=== PATIENT | female | born 1985 | race Caucasian/White ===

== ENCOUNTER 2018-09-30 09:31 | Emergency (ER) | payer SELFPAY ==
--- NOTE | 2018-09-30 09:39 | EDM.PDOC ---
ED HPI GENERAL MEDICAL PROBLEM - General Chief Complaint: Allergic Reaction Stated Complaint: RASH Time Seen by Provider: 09/30/18 09:35 - History of Present Illness INITIAL COMMENTS - FREE TEXT/NARRATIVE: HISTORY AND PHYSICAL: History of present illness: Patient is a 32-year-old white female presents with a concern of rash to her hands bilaterally who subsequently had a syncopal episode while out in triage. She denies chest pain shortness of breath denies drug or alcohol abuse denies chest pain palpitations she is currently on her menses Review of systems: As per history of present illness and below otherwise all systems reviewed and negative. Past medical history: As per history of present illness and as reviewed below otherwise noncontributory. Surgical history: As per history of present illness and as reviewed below otherwise noncontributory. Social history: No reported history of drug or alcohol abuse. Family history: As per history of present illness and as reviewed below otherwise noncontributory. Physical exam: HEENT: Atraumatic, normocephalic, pupils reactive, negative for conjunctival pallor or scleral icterus, mucous membranes moist, throat clear, neck supple, nontender, trachea midline. Lungs: Clear to auscultation, breath sounds equal bilaterally, chest nontender. Heart: S1S2, regular, negative for clicks, rubs, or JVD. Abdomen: Soft, nondistended, nontender. Negative for masses or hepatosplenomegaly. Negative for costovertebral tenderness. Pelvis: Stable nontender. Genitourinary: Deferred. Rectal: Deferred. Extremities: Atraumatic, negative for cords or calf pain. Neurovascular unremarkable. Neuro: Awake, alert, oriented. Cranial nerves II through XII unremarkable. Cerebellum unremarkable. Motor and sensory unremarkable throughout. Exam nonfocal. Diagnostics: CBC CMP troponin PT/INR chest x-ray EKG UA hCG UDS Therapeutics: Saline 1 L bolus Impression: #1 rash #2 syncope Definitive disposition and diagnosis as appropriate pending reevaluation and review of above. - Related Data Allergies Allergy/AdvReac Type Severity Reaction Status Date / Time No Known Allergies Allergy Verified 09/30/18 09:49 Home Meds: Home Meds . [No Known Home Meds] 11/12/13 [History] Past Medical History - Past Health History Medical/Surgical History: Denies Medical/Surgical History ED ROS ALLERGIC REACTION - Review of Systems Review Of Systems: ROS reveals no pertinent complaints other than HPI. ED EXAM GENERAL NO PERIP PULSE - Physical Exam Exam: See Below (See dictation) Course - Vital Signs Text/Narrative:: I discussed with patient diagnostics and also discussed admission for observation patient declines feels much improved and requests discharge home patient understands risk-benefit will follow-up as needed as discussed Last Recorded V/S: Last Vital Signs Temp 35.9 C 09/30/18 09:46 Pulse 72 09/30/18 09:46 Resp 18 09/30/18 09:46 BP 98/55 L 09/30/18 09:46 Pulse Ox 98 09/30/18 09:46 - Orders/Labs/Meds Orders: Active Orders 24 hr Category Date Time Status Cardiac Monitoring [RC] . DIRECTED Care 09/30/18 09:44 Active EKG Documentation Completion [RC] STAT Care 09/30/18 09:44 Active DRUG SCREEN, URINE [URCHEM] Stat Lab 09/30/18 09:44 Ordered HCG QUALITATIVE,URINE [URCHEM] Urgent Lab 09/30/18 09:44 Ordered UA RFX GONZALO AND CULT IF INDIC [URIN] Stat Lab 09/30/18 09:46 Ordered Labs: Laboratory Tests 09/30/18 09/30/18 Range/Units 09:40 09:40 WBC 7.18 (4.0-11.0) K/uL RBC 5.32 (4.30-5.90) M/uL Hgb 16.2 H (12.0-16.0) g/dL Hct 45.8 (36.0-46.0) % MCV 86.1 (80.0-98.0) fL MCH 30.5 (27.0-32.0) pg MCHC 35.4 (31.0-37.0) g/dL RDW Std Deviation 40.6 (28.0-62.0) fl RDW Coeff of Natalie 13 (11.0-15.0) % Plt Count 231 (150-400) K/uL MPV 9.40 (7.40-12.00) fL Neut % (Auto) 45.7 L (48.0-80.0) % Lymph % (Auto) 42.2 H (16.0-40.0) % Prairie % (Auto) 10.3 (0.0-15.0) % Eos % (Auto) 1.4 (0.0-7.0) % Baso % (Auto) 0.4 (0.0-1.5) % Neut # (Auto) 3.3 (1.4-5.7) K/uL Lymph # (Auto) 3.0 H (0.6-2.4) K/uL Prairie # (Auto) 0.7 (0.0-0.8) K/uL Eos # (Auto) 0.1 (0.0-0.7) K/uL Baso # (Auto) 0.0 (0.0-0.1) K/uL Nucleated RBC % 0.0 /100WBC Nucleated RBCs # 0 K/uL Sodium 140 (136-145) mmol/L Potassium 4.0 (3.5-5.1) mmol/L Chloride 105 (98-107) mmol/L Carbon Dioxide 22.9 (21.0-32.0) mmol/L BUN 7 (7.0-18.0) mg/dL Creatinine 1.0 (0.6-1.0) mg/dL Est Cr Clr Drug Dosing 58.55 mL/min Estimated GFR (MDRD) > 60.0 ml/min Glucose 123 H (74-106) mg/dL Calcium 8.7 (8.5-10.1) mg/dL Total Bilirubin 0.3 (0.2-1.0) mg/dL AST 22 (15-37) IU/L ALT 30 (14-63) IU/L Alkaline Phosphatase 57 (46-116) U/L Troponin I < 0.050 (0.000-0.056) ng/mL Total Protein 7.5 (6.4-8.2) g/dL Albumin 3.2 L (3.4-5.0) g/dL Globulin 4.3 H (2.6-4.0) g/dL Albumin/Globulin Ratio 0.7 L (0.9-1.6) Meds: Medications Discontinued Medications Generic Name Dose Route Start Last Admin Trade Name Freq PRN Reason Stop Dose Admin Sodium Chloride 1,000 mls @ 999 mls/hr 09/30/18 09:45 09/30/18 10:32 Normal Saline IV 09/30/18 10:45 999 mls/hr .Bolus ONE Administration Departure - Departure Time of Disposition: 11:15 Disposition: Home, Self-Care 01 Condition: Good Clinical Impression: Dehydration, Vasovagal episode, Viral syndrome, Rash - Discharge Information Additional Instructions: The following information is given to patients seen in the emergency department who are being discharged to home. This information is to outline your options for follow-up care. We provide all patients seen in our emergency department with a follow-up referral. The need for follow-up, as well as the timing and circumstances, are variable depending upon the specifics of your emergency department visit. If you don't have a primary care physician on staff, we will provide you with a referral. We always advise you to contact your personal physician following an emergency department visit to inform them of the circumstance of the visit and for follow-up with them and/or the need for any referrals to a consulting specialist. The emergency department will also refer you to a specialist when appropriate. This referral assures that you have the opportunity for followup care with a specialist. All of these measure are taken in an effort to provide you with optimal care, which includes your followup. Under all circumstances we always encourage you to contact your private physician who remains a resource for coordinating your care. When calling for followup care, please make the office aware that this follow-up is from your recent emergency room visit. If for any reason you are refused follow-up, please contact the [facility] emergency department at and asked to speak to the emergency department charge nurse. Push fluids Motrin/Tylenol as directed Benadryl as directed follow-up primary care as needed as discussed and return as needed as discussed - My Orders Last 24 Hours: My Active Orders 09/30/18 09:44 Cardiac Monitoring [RC] . DIRECTED EKG Documentation Completion [RC] STAT DRUG SCREEN, URINE [URCHEM] Stat HCG QUALITATIVE,URINE [URCHEM] Urgent 09/30/18 09:46 UA RFX GONZALO AND CULT IF INDIC [URIN] Stat - Assessment/Plan Last 24 Hours: My Active Orders 09/30/18 09:44 Cardiac Monitoring [RC] . DIRECTED EKG Documentation Completion [RC] STAT DRUG SCREEN, URINE [URCHEM] Stat HCG QUALITATIVE,URINE [URCHEM] Urgent 09/30/18 09:46 UA RFX GONZALO AND CULT IF INDIC [URIN] Stat
[2018-09-30] MEDS ORDERED: Sodium Chloride 0.9% 1,000 ML IV ONE ×2 (09:45→13:10)
[2018-09-30 10:25] LABS: CHLORIDE,CL 105 mmol/L (98-107); SODIUM,NA 140 mmol/L (136-145)
--- NOTE | 2018-09-30 10:57 | CR ---
EXAMINATION: Portable chest radiograph. HISTORY: Chest pain. FINDINGS: The trachea is midline. The cardiomediastinal silhouette is within normal limits. No pulmonary infiltrates, effusions or pneumothorax. Osseous structures appear unremarkable. IMPRESSION: No acute cardiopulmonary process.
== END 2018-09-30 14:13 | disposition home or self-care (01) ==
LOC: MW.ED 09:31
DX: E86.0 Dehydration (principal); R21 Rash and other nonspecific skin eruption; B34.9 Viral infection, unspecified
CPT/HCPCS: 36415; 71045; 80053; 84484; 84703; 85025; 87804; 93005; 96360; 96361; 99284; J7040

== ENCOUNTER 2019-09-07 17:47 | Emergency (ER) | payer SELFPAY ==
--- NOTE | 2019-09-07 18:47 | EDM.PDOC ---
ED [facility] GENERAL MEDICAL PROBLEM - General Chief Complaint: Syncope Stated Complaint: PASS OUT 2 TIMES TODAY Time Seen by Provider: 09/07/19 18:01 - History of Present Illness INITIAL COMMENTS - FREE TEXT/NARRATIVE: HPI 33-year-old obese female with history of vasovagal syncope reports that she felt like she was going to pass out several times today, this was a company by lightheadedness that resolved one sitting. Patient reports that she has had decreased PO intake over last several days due to viral upper respiratory tract infection symptoms. Patient reports that she is previously passed out when dehydrated. * Denies chest pain, shortness of breath, double vision, neck pain, vertigo, headache, arm pain, arm paresthesias, arm numbness, or focal weakness or sensory at change now or the time of their event. * Denies recent chiropractic manipulation of their neck, neck trauma or strains. * Denies a history of seizures. No incontinence today, denies post-syncope confusion. M/S/F/SocHx notable for: please see HPI; remainder reviewed with patient and in chart. ROS: Negative constitutional, eye, cardiovascular, pulmonary, GI, , MSK, skin , neurologic, psychiatric, endocrine unless noted in the HPI. Exam HR 85, BP 141/96, RR 19, T 36.9 F, SaO2 99 % on room air; at 5:55 PM. Gen: Pleasant, non-toxic appearing, resting comfortably. HEENT: NC, AT, PEERL, EOMI. Resp: Clear to auscultation bilaterally with a normal work of breathing and no accessory muscle usage. Card: Regular rate and rhythm with no murmurs rubs or gallops, extremities are warm and well perfused, no JVD. GI: Nontender to palpation throughout all quadrants, nondistended : Deferred MSK: No visible deformities, strength and tone WNL. Skin: Normal color with no visible lesions. Neuro: alert and oriented 3, no facial asymmetry, no gaze preference, no slurring of speech. Pupils equal and reactive, EOMI, no facial asymmetry, no nystagmus, phonation intact, SCM 5/5 bilaterally. Cerebellar: bilateral upper extremities without dysmetria. Psych: unusual mood and affect. Labs / Imaging (pertinent): Accu-Chek 126. CBC, BMP, hCG, EtOH pending. EKG: SR at [address]-segment elevations or depressions, T-wave inversions or new LBBB. CA interval 139 msec, QTc 410 msec, no delta waves, epsilon waves, coved or saddle ST-segment changes in leads V1-3, preseptal or inferior lead Q-waves, biphasic P-waves, or T-wave inversions; no LVH. MDM Previous chart, nursing note, and vitals reviewed. A: 33-year-old obese female with history of vasovagal syncope reports that she felt like she was going to pass out several times today, this was a company by lightheadedness that resolved one sitting. DDx and evaluation: * Anemia - doubt based upon history and exam, however Hb pending. * Cardiac - EKG labs and history without evidence of ACS, AV-block, WPW syndrome, Brugada syndrome, HCM, Long or Short QT-syndrome, or arrhythmogenic RV dysplasia. Heart sounds WNL on exam, no evidence of valvular abnormalities by history or auscultation. * Obstructive - Doubt PE, tamponade, or pulmonary hypertension based upon lack of shortness of breath, chest pain, or historical risk factors on history and the absence of hypoxemia, tachycardia, hypotension, or JVD on exam. PERC negative (age >= 50 - N, HR >= 100 - N, SaO2 < 95 - N, prior DVT - N, trauma or surgery in last 4 weeks - N, hemoptysis - N, exogenous estrogen - N, unilateral leg swelling - N). * Vascular - As there are no identifiable risk factors on history (injury risk factors, vertiginous symptoms, diplopia, vision changes, TIA risk factors or prior similar events) further evaluation of a possible vertebrobasilar insufficiency. Furthermore, as the patient denies neck pain, recent neck trauma , and there is no evidence of a partial Terry's syndrome, a carotid or vertebral dissection is felt to be unlikely and imaging is not indicated. Similarly, the absence of focal arm symptoms and symmetric perfusion of the upper extremities effectively excludes emergent evaluation of any possible subclavian steal syndrome. Lastly, given the absence of chest pain aortic dissection further evaluation of any possible dissection is not warranted. * Electrolyte low(er) risk based upon history and exam, BMP pending. * Hypotension (hypovolemia vs vasovagal vs autonomic instability) - SBP clinically within normal limits, no symptomatic changes with orthostatic maneuvers. * VP D[employer]ITAL MARKETING (CVA/TIA/Mass) - given the absence of headache, absence of reported transient symptoms c/w a TIA and the absence of a focal neurological deficit, further evaluation, including imaging is not currently warranted. * Seizure - given the absence of reported seizure history and a presentation today atypical for a seizure strongly doubt that this was the cause of the patient's event. * AAA - patient without any abdominal, groin, back or flank pain on history or exam, as such no further evaluation of this possible etiology is currently indicated. ED Course: 1 L NS ordered. Disposition: patient care transfer to the overnight provider pending laboratory studies, IV fluids, and repeat evaluation. Impression: presyncope. - Related Data Allergies Allergy/AdvReac Type Severity Reaction Status Date / Time No Known Allergies Allergy Verified 09/07/19 18:04 Home Meds: Home Meds . [No Known Home Meds] 11/12/13 [History] Past Medical History - Past Health History Medical/Surgical History: Denies Medical/Surgical History Neurological History: Reports: Other (See Below) Other Neuro History: syncopal episodes - Infectious Disease History Infectious Disease History: Reports: Chicken Pox Social & Family History - Family History Family Medical History: Noncontributory - Tobacco Use Smoking Status *Q: Never Smoker Second Hand Smoke Exposure: No - Caffeine Use Caffeine Use: Reports: Coffee - Recreational Drug Use Recreational Drug Use: No ED ROS GENERAL - Review of Systems Review Of Systems: See Below ED EXAM, GENERAL - Physical Exam Exam: See Below Course - Vital Signs Last Recorded V/S: Last Vital Signs Temp 36.9 C 09/07/19 17:55 Pulse 80 09/07/19 18:26 Resp 16 09/07/19 18:26 BP 139/87 09/07/19 18:26 Pulse Ox 97 09/07/19 18:26 - Orders/Labs/Meds Orders: Active Orders 24 hr Category Date Time Status BMP [BASIC METABOLIC PANEL,BMP] [CHEM] Stat Lab 09/07/19 18:35 Received CBC WITH AUTO DIFF [HEME] Stat Lab 09/07/19 18:35 Received ETOH [ETHANOL BLOOD MEDICAL] [CHEM] Stat Lab 09/07/19 18:35 Received HCG QUALITATIVE,SERUM [CHEM] Stat Lab 09/07/19 18:35 Received Labs: Laboratory Tests 09/07/19 Range/Units 18:00 POC Glucose 126 H (60-110) mg/dL Departure - Departure Time of Disposition: 18:47 Disposition: Still A Patient 30 Clinical Impression: Pre-syncope - Discharge Information Referrals: PCP,None [Primary Care Provider] - Additional Instructions: You were in seen in the [facility] Emergency Department for evaluation of feeling like you are going to pass out or presyncope. Please read and follow all of the instructions below. Please follow up with your primary care physician in 24-48 hours for repeat evaluation and further care. When calling for follow-up care, please make the office aware that this follow-up is from your recent emergency room visit. If for any reason you are refused follow-up, please contact the [facility] Emergency Department at and asked to speak to the emergency department charge nurse. Your care today was limited to identifying and treating emergent medical problems only. Many people have subtle differences in their test results that require follow up with their outpatient physician(s) to correctly determine if this represents a normal variation or concerning abnormality with respect to your specific health. The care given to you today was limited to identifying and treating emergent medical problems - you need to request a copy of all of your medical records from today's visit and follow up with your outpatient physician(s) to review both today's visit and your overall health. If you have any new symptoms or if you are at all concerned about your health please return immediately to the emergency department. Prescriptions: If you are uninsured or have financial difficulties with filling your prescription(s), you may consider using a free pharmacy discount service such as [employer] ([employer]) or [employer] ([employer]). These services allow you to search for a medication on your phone (or computer) and obtain a coupon that usually has a significant discount from the list frias at a pharmacy. Your physician as well as [facility] does not have a financial relationship with either of these services. You may also wish to speak with your physician to determine if lower cost prescriptions are possible. Obtaining primary care: 1. [facility] provides pediatrics (children), family medicine (children, adults, and some obstetrical care), and internal medicine (adults). Further specialty care is also available. Same day appointments are available. They may be contacted at [phone] and are open Sergey through Wednesday 8 AM to 5 PM. The [facility] clinics are located at [facility], [address] [place], [place] [address]. 2. [facility] offers family medicine, internal medicine, womens health, and further specialty care. [facility] may be contacted at [phone]. [facility] is located at [address] [place], [address]. 3. If you have health insurance, please also contact your insurer for a list of accepting providers under your policy, you may contact these providers for further health care. Occupational health: Work related injuries may consider following up with [facility], . Occupational health services are located at [address] [address] and are open Wednesday through Wednesday from 7: 30 am to 5:00 pm. Obstetrical and Gynecological Care: [facility], , Wednesday through Wednesday 8 AM to [address] [place] [address]. Eyecare: If you have an eye injury you should follow up with your decorative engraver or with [facility], at [phone] or [phone] , they are located at [address] [place] [address]. Dental Care Jaleel Hernandez DDS. [address] [facility] [place], [place]. Ph. [phone] Gurmeet Hernandez DDS MS. [address] [facility] [address], [place], [place]. Ph. Anoop Anton DDS. 10 07/06 [facility] [place]. Ph. [phone] Ted Shafer DDS. [address] [facility] [address] [place], [place]. Ph. [phone] Blaise Betancourt DDS PC. [address] [place] [address] [address] [place], [place]. Ph. [phone] Christiano Melendez DDS. [address] [facility]. Ph. [phone] [facility]. [address] [place], [place]. Ph. [phone] [facility]. [address], [place], [place]. Ph. [phone] [facility] [address] [place] [address]. Ph. [phone] [facility]. [address] [place] [address] [address] [place], [place]. Ph. [phone] [facility]. [address], [place], [place]. Ph. [phone] Syncope You have had a fainting (syncopal) spell. A fainting episode is a sudden and brief loss of consciousness. We do not believe your syncopal episode today was caused by a serious problem. You should . Please followup with your primary care physician within 1-2 days for reevaluation, review of your current medications, and further workup or treatment if necessary. There are many causes for syncope and it can be difficult to fully diagnose each cause of syncope in the emergency department. Some of the most common causes of syncope are: Blood pressure pills and other medications that may lower blood pressure below normal. Sudden changes in posture (sudden standing). Standing too long. This can cause blood to pool in the legs. Seizure disorders. Low blood sugar (hypoglycemia) of diabetes. Bearing down to go to the bathroom. This can cause your blood pressure to rise suddenly. Your body compensates by making the blood pressure too low when you stop bearing down. Hardening of the arteries where the brain temporarily does not receive enough blood. Irregular heart beat and circulatory problems. Fear, emotional distress, injury, sight of blood, or illness. Seek immediate medical care if: You have another fainting episode or faint while lying or sitting down. DO NOT DRIVE YOURSELF. Call 911 if no other help is available. You have chest pain, are feeling sick to your stomach (nausea), vomiting or abdominal pain. You have an irregular heartbeat or one that is very fast (pulse over 120 beats per minute). You have a loss of feeling in some part of your body or lose movement in your arms or legs. You have difficulty with speech, confusion, severe weakness, or visual problems. You become sweaty and/or feel light headed. Sepsis Event Note - Evaluation Sepsis Screening Result: No Definite Risk - Focused Exam Vital Signs: Vital Signs Temp Pulse Resp BP Pulse Ox 09/07/19 18:26 80 16 139/87 97 09/07/19 17:55 36.9 C 85 19 141/96 H 99 Date Exam was Performed: 09/07/19 Time Exam was Performed: 18:46 - My Orders Last 24 Hours: My Active Orders 09/07/19 18:35 BMP [BASIC METABOLIC PANEL,BMP] [CHEM] Stat CBC WITH AUTO DIFF [HEME] Stat ETOH [ETHANOL BLOOD MEDICAL] [CHEM] Stat HCG QUALITATIVE,SERUM [CHEM] Stat - Assessment/Plan Last 24 Hours: My Active Orders 09/07/19 18:35 BMP [BASIC METABOLIC PANEL,BMP] [CHEM] Stat CBC WITH AUTO DIFF [HEME] Stat ETOH [ETHANOL BLOOD MEDICAL] [CHEM] Stat HCG QUALITATIVE,SERUM [CHEM] Stat
[2019-09-07 19:07] LABS: BLOOD UREA NITROGEN,BUN 12 mg/dL (7.0-18.0); CARBON DIOXIDE,CO2 28.3 mmol/L (21.0-32.0); CHLORIDE,CL 105 mmol/L (98-107); GLUCOSE RANDOM 94 mg/dL (74-106); SODIUM,NA 143 mmol/L (136-145)
--- NOTE | 2019-09-07 19:31 | EDM.PDOC ---
ED [facility] GENERAL MEDICAL PROBLEM - General Chief Complaint: Syncope Stated Complaint: PASS OUT 2 TIMES TODAY Time Seen by Provider: 09/07/19 18:01 - History of Present Illness INITIAL COMMENTS - FREE TEXT/NARRATIVE: HPI 33-year-old obese female with history of vasovagal syncope reports that she felt like she was going to pass out several times today, this was a company by lightheadedness that resolved one sitting. Patient reports that she has had decreased PO intake over last several days due to viral upper respiratory tract infection symptoms. Patient reports that she is previously passed out when dehydrated. * Denies chest pain, shortness of breath, double vision, neck pain, vertigo, headache, arm pain, arm paresthesias, arm numbness, or focal weakness or sensory at change now or the time of their event. * Denies recent chiropractic manipulation of their neck, neck trauma or strains. * Denies a history of seizures. No incontinence today, denies post-syncope confusion. M/S/F/SocHx notable for: please see HPI; remainder reviewed with patient and in chart. ROS: Negative constitutional, eye, cardiovascular, pulmonary, GI, , MSK, skin , neurologic, psychiatric, endocrine unless noted in the HPI. Exam HR 85, BP 141/96, RR 19, T 36.9 F, SaO2 99 % on room air; at 5:55 PM. Gen: Pleasant, non-toxic appearing, resting comfortably. HEENT: NC, AT, PEERL, EOMI. Resp: Clear to auscultation bilaterally with a normal work of breathing and no accessory muscle usage. Card: Regular rate and rhythm with no murmurs rubs or gallops, extremities are warm and well perfused, no JVD. GI: Nontender to palpation throughout all quadrants, nondistended : Deferred MSK: No visible deformities, strength and tone WNL. Skin: Normal color with no visible lesions. Neuro: alert and oriented 3, no facial asymmetry, no gaze preference, no slurring of speech. Pupils equal and reactive, EOMI, no facial asymmetry, no nystagmus, phonation intact, SCM 5/5 bilaterally. Cerebellar: bilateral upper extremities without dysmetria. Psych: unusual mood and affect. Labs / Imaging (pertinent): Accu-Chek 126. CBC, BMP, hCG, EtOH pending. EKG: SR at [address]-segment elevations or depressions, T-wave inversions or new LBBB. NE interval 139 msec, QTc 410 msec, no delta waves, epsilon waves, coved or saddle ST-segment changes in leads V1-3, preseptal or inferior lead Q-waves, biphasic P-waves, or T-wave inversions; no LVH. MDM Previous chart, nursing note, and vitals reviewed. A: 33-year-old obese female with history of vasovagal syncope reports that she felt like she was going to pass out several times today, this was a company by lightheadedness that resolved one sitting. DDx and evaluation: * Anemia - doubt based upon history and exam, however Hb pending. * Cardiac - EKG labs and history without evidence of ACS, AV-block, WPW syndrome, Brugada syndrome, HCM, Long or Short QT-syndrome, or arrhythmogenic RV dysplasia. Heart sounds WNL on exam, no evidence of valvular abnormalities by history or auscultation. * Obstructive - Doubt PE, tamponade, or pulmonary hypertension based upon lack of shortness of breath, chest pain, or historical risk factors on history and the absence of hypoxemia, tachycardia, hypotension, or JVD on exam. PERC negative (age >= 50 - N, HR >= 100 - N, SaO2 < 95 - N, prior DVT - N, trauma or surgery in last 4 weeks - N, hemoptysis - N, exogenous estrogen - N, unilateral leg swelling - N). * Vascular - As there are no identifiable risk factors on history (injury risk factors, vertiginous symptoms, diplopia, vision changes, TIA risk factors or prior similar events) further evaluation of a possible vertebrobasilar insufficiency. Furthermore, as the patient denies neck pain, recent neck trauma , and there is no evidence of a partial Terry's syndrome, a carotid or vertebral dissection is felt to be unlikely and imaging is not indicated. Similarly, the absence of focal arm symptoms and symmetric perfusion of the upper extremities effectively excludes emergent evaluation of any possible subclavian steal syndrome. Lastly, given the absence of chest pain aortic dissection further evaluation of any possible dissection is not warranted. * Electrolyte low(er) risk based upon history and exam, BMP pending. * Hypotension (hypovolemia vs vasovagal vs autonomic instability) - SBP clinically within normal limits, no symptomatic changes with orthostatic maneuvers. * ESTIMATION MANAGER (CVA/TIA/Mass) - given the absence of headache, absence of reported transient symptoms c/w a TIA and the absence of a focal neurological deficit, further evaluation, including imaging is not currently warranted. * Seizure - given the absence of reported seizure history and a presentation today atypical for a seizure strongly doubt that this was the cause of the patient's event. * AAA - patient without any abdominal, groin, back or flank pain on history or exam, as such no further evaluation of this possible etiology is currently indicated. ED Course: 1 L NS ordered. Disposition: patient care transfer to the overnight provider pending laboratory studies, IV fluids, and repeat evaluation. Impression: presyncope. - Related Data Allergies Allergy/AdvReac Type Severity Reaction Status Date / Time No Known Allergies Allergy Verified 09/07/19 18:04 Home Meds: Home Meds . [No Known Home Meds] 11/12/13 [History] Past Medical History - Past Health History Medical/Surgical History: Denies Medical/Surgical History Neurological History: Reports: Other (See Below) Other Neuro History: syncopal episodes - Infectious Disease History Infectious Disease History: Reports: Chicken Pox Social & Family History - Family History Family Medical History: Noncontributory - Tobacco Use Smoking Status *Q: Never Smoker Second Hand Smoke Exposure: No - Caffeine Use Caffeine Use: Reports: Coffee - Recreational Drug Use Recreational Drug Use: No ED ROS GENERAL - Review of Systems Review Of Systems: See Below - Physical Exam Exam: See Below Course - Vital Signs Text/Narrative:: Please see the original H&P as the patient's care has been handed off to me. ECG The ECG was read and interpreted by me. There are p waves before every QRS with a ventricular rate of 82. The NE, QRS, and QT intervals are all normal. [place] is normal. ST segments are baseline and the T wave morphology is normal. Final interpretation is a normal Sinus rhythm and a normal ECG. Labs are unremarkable, the patient is not orthostatic, she is awake alert and oriented x3, etc. Listening to the patient's story, she has multiple episodes of vasovagal syncope in the past, and most of them are associated with her either being sick, or episodes such as giving plasma, having her finger stapled , etc. Tonight near syncopal episode is no different and I agree with the morning physician's initial clinical suspicion that todays near syncopal episode is not due to any malignant cause and she is stable for discharge. Last Recorded V/S: Last Vital Signs Temp 36.9 C 09/07/19 17:55 Pulse 80 09/07/19 18:26 Resp 16 09/07/19 18:26 BP 139/87 09/07/19 18:26 Pulse Ox 97 09/07/19 18:26 - Orders/Labs/Meds Orders: Active Orders 24 hr Category Date Time Status EKG Documentation Completion [RC] STAT Care 09/07/19 19:33 Active Labs: Laboratory Tests 09/07/19 09/07/19 09/07/19 Range/Units 18:00 18:35 18:35 WBC 5.40 (4.0-11.0) K/uL RBC 4.90 (4.30-5.90) M/uL Hgb 14.8 (12.0-16.0) g/dL Hct 42.3 (36.0-46.0) % MCV 86.3 (80.0-98.0) fL MCH 30.2 (27.0-32.0) pg MCHC 35.0 (31.0-37.0) g/dL RDW Std Deviation 38.8 (28.0-62.0) fl RDW Coeff of Natalie 13 (11.0-15.0) % Plt Count 239 (150-400) K/uL MPV 9.20 (7.40-12.00) fL Neut % (Auto) 49.3 (48.0-80.0) % Lymph % (Auto) 32.8 (16.0-40.0) % Smith % (Auto) 12.0 (0.0-15.0) % Eos % (Auto) 5.7 (0.0-7.0) % Baso % (Auto) 0.2 (0.0-1.5) % Neut # (Auto) 2.7 (1.4-5.7) K/uL Lymph # (Auto) 1.8 (0.6-2.4) K/uL Smith # (Auto) 0.7 (0.0-0.8) K/uL Eos # (Auto) 0.3 (0.0-0.7) K/uL Baso # (Auto) 0.0 (0.0-0.1) K/uL Sodium 143 (136-145) mmol/L Potassium 4.0 (3.5-5.1) mmol/L Chloride 105 (98-107) mmol/L Carbon Dioxide 28.3 (21.0-32.0) mmol/L BUN 12 (7.0-18.0) mg/dL Creatinine 0.9 (0.6-1.0) mg/dL Est Cr Clr Drug Dosing 64.46 mL/min Estimated GFR (MDRD) > 60.0 ml/min Glucose 94 (74-106) mg/dL POC Glucose 126 H (60-110) mg/dL Calcium 9.3 (8.5-10.1) mg/dL HCG, Qual (NEG) Ethyl Alcohol mg/dL 09/07/19 09/07/19 Range/Units 18:35 18:35 WBC (4.0-11.0) K/uL RBC (4.30-5.90) M/uL Hgb (12.0-16.0) g/dL Hct (36.0-46.0) % MCV (80.0-98.0) fL MCH (27.0-32.0) pg MCHC (31.0-37.0) g/dL RDW Std Deviation (28.0-62.0) fl RDW Coeff of Natalie (11.0-15.0) % Plt Count (150-400) K/uL MPV (7.40-12.00) fL Neut % (Auto) (48.0-80.0) % Lymph % (Auto) (16.0-40.0) % Smith % (Auto) (0.0-15.0) % Eos % (Auto) (0.0-7.0) % Baso % (Auto) (0.0-1.5) % Neut # (Auto) (1.4-5.7) K/uL Lymph # (Auto) (0.6-2.4) K/uL Smith # (Auto) (0.0-0.8) K/uL Eos # (Auto) (0.0-0.7) K/uL Baso # (Auto) (0.0-0.1) K/uL Sodium (136-145) mmol/L Potassium (3.5-5.1) mmol/L Chloride (98-107) mmol/L Carbon Dioxide (21.0-32.0) mmol/L BUN (7.0-18.0) mg/dL Creatinine (0.6-1.0) mg/dL Est Cr Clr Drug Dosing mL/min Estimated GFR (MDRD) ml/min Glucose (74-106) mg/dL POC Glucose (60-110) mg/dL Calcium (8.5-10.1) mg/dL HCG, Qual NEGATIVE (NEG) Ethyl Alcohol <3 mg/dL Departure - Departure Time of Disposition: 19:44 Disposition: Home, Self-Care 01 Clinical Impression: Pre-syncope - Discharge Information Instructions: Near-Syncope, [id number], Syncope, [id number] Referrals: PCP,None [Primary Care Provider] - Forms: ED Department Discharge Additional Instructions: You were in seen in the Emergency Department for evaluation of feeling like you are going to pass out or presyncope. Please read and follow all of the instructions below. Please follow up with your primary care physician in 24-48 hours for repeat evaluation and further care. When calling for follow-up care, please make the office aware that this follow-up is from your recent emergency room visit. If for any reason you are refused follow-up, please contact the Emergency Department at and asked to speak to the emergency department charge nurse. Your care today was limited to identifying and treating emergent medical problems only. Many people have subtle differences in their test results that require follow up with their outpatient physician(s) to correctly determine if this represents a normal variation or concerning abnormality with respect to your specific health. The care given to you today was limited to identifying and treating emergent medical problems - you need to request a copy of all of your medical records from today's visit and follow up with your outpatient physician(s) to review both today's visit and your overall health. If you have any new symptoms or if you are at all concerned about your health please return immediately to the emergency department. Prescriptions: If you are uninsured or have financial difficulties with filling your prescription(s), you may consider using a free pharmacy discount service such as GoodRx ([employer]) or See[employer]Fix ([employer]). These services allow you to search for a medication on your phone (or computer) and obtain a coupon that usually has a significant discount from the list frias at a pharmacy. Your physician as well as [facility] does not have a financial relationship with either of these services. You may also wish to speak with your physician to determine if lower cost prescriptions are possible. Obtaining primary care: 1. [facility] provides pediatrics (children), family medicine (children, adults, and some obstetrical care), and internal medicine (adults). Further specialty care is also available. Same day appointments are available. They may be contacted at [phone] and are open Wednesday through Wednesday 8 AM to 5 PM. The [facility] are located at [facility], [address] [place] [address]. 2. [facility] offers family medicine, internal medicine, [facility], and further specialty care. [facility] may be contacted at [phone]. [facility] is located at [address] [facility] [address]. 3. If you have health insurance, please also contact your insurer for a list of accepting providers under your policy, you may contact these providers for further health care. Occupational health: Work related injuries may consider following up with [facility], . Occupational health services are located at [address] [place] [id number] and are open Wednesday through Wednesday from 7: 30 am to 5:00 pm. Obstetrical and Gynecological Care: [facility], , Wednesday through Wednesday 8 AM to 5 PM. [address] [address]. Eyecare: If you have an eye injury you should follow up with your deburr operator or with [facility], at [phone] or [phone] , they are located at [address] [place] [address]. Dental Care Jaleel Hernandez DDS. [address] [facility] [place], [place]. Ph. [phone] Gurmeet Curry David DDS MS. [address] [facility] [address], [place], [place]. Ph. Anoop Gonzalez Desean DDS. 10 07/06 [facility] [address], [place], [place]. Ph. [phone] Ted Shafer DDS. [address] [facility] [address] [place], [place]. Ph. [phone] Blaise Betancourt DDS PC. [address] [facility] [address] [place], [place]. Ph. Christiano Melendez DDS. [address] [facility]. Ph. [phone] [facility]. [address] [place], [place]. Ph. [phone] [facility]. [address] [place] [address], [place], [place]. Ph. [phone] [facility] [address] [place] [address]. Ph. [phone] [facility]. [address] [place] [address] [address] [place], [place]. Ph. [phone] [facility]. [address] [place], [place]. Ph. [phone] Syncope You have had a fainting (syncopal) spell. A fainting episode is a sudden and brief loss of consciousness. We do not believe your syncopal episode today was caused by a serious problem. You should . Please followup with your primary care physician within 1-2 days for reevaluation, review of your current medications, and further workup or treatment if necessary. There are many causes for syncope and it can be difficult to fully diagnose each cause of syncope in the emergency department. Some of the most common causes of syncope are: Blood pressure pills and other medications that may lower blood pressure below normal. Sudden changes in posture (sudden standing). Standing too long. This can cause blood to pool in the legs. Seizure disorders. Low blood sugar (hypoglycemia) of diabetes. Bearing down to go to the bathroom. This can cause your blood pressure to rise suddenly. Your body compensates by making the blood pressure too low when you stop bearing down. Hardening of the arteries where the brain temporarily does not receive enough blood. Irregular heart beat and circulatory problems. Fear, emotional distress, injury, sight of blood, or illness. Seek immediate medical care if: You have another fainting episode or faint while lying or sitting down. DO NOT DRIVE YOURSELF. Call 911 if no other help is available. You have chest pain, are feeling sick to your stomach (nausea), vomiting or abdominal pain. You have an irregular heartbeat or one that is very fast (pulse over 120 beats per minute). You have a loss of feeling in some part of your body or lose movement in your arms or legs. You have difficulty with speech, confusion, severe weakness, or visual problems. You become sweaty and/or feel light headed. Sepsis Event Note - Evaluation Sepsis Screening Result: No Definite Risk - Focused Exam Vital Signs: Vital Signs Temp Pulse Resp BP Pulse Ox 09/07/19 18:26 80 16 139/87 97 09/07/19 17:55 36.9 C 85 19 141/96 H 99 Date Exam was Performed: 09/07/19 Time Exam was Performed: 19:42 - My Orders Last 24 Hours: My Active Orders 09/07/19 19:33 EKG Documentation Completion [RC] STAT - Assessment/Plan Last 24 Hours: My Active Orders 09/07/19 19:33 EKG Documentation Completion [RC] STAT
== END 2019-09-07 19:51 | disposition home or self-care (01) ==
LOC: MW.ED 17:47
DX: R55 Syncope and collapse (principal)
CPT/HCPCS: 36415; 80048; 80307; 82962; 84703; 85025; 93005; 99284-25